=== PATIENT | male | born 1955 | race Caucasian/White ===

== ENCOUNTER 2018-01-02 14:09 | Inpatient (IN) | payer OTHER ==
[~2018-01-02 14:09] MED LIST: EPINEPHrine 1 MG/10 ML SYR IVP ONE
[2018-01-02] MEDS ORDERED: EPINEPHrine 1 MG/10 ML SYR IVP ONE ×6 (14:11→21:40)
[2018-01-02] MEDS ORDERED: SODIUM BICARBONATE 50 MEQ/50 ML SYR IVP ONE ×2 (14:11→14:15)
[2018-01-02] MEDS ORDERED: CALCIUM CHLORIDE 1 GM/10 ML INJ IV ONE ×2 (14:16→21:40)
[2018-01-02] MEDS ORDERED: LIDOCAINE 1% 300 MG/30 ML SDV ONE ×2 (14:26→14:29)
[2018-01-02] MEDS ORDERED: fentaNYL 100 MCG/2 ML INJ ONE (14:26)
[2018-01-02] MEDS ORDERED: MIDAZOLAM 2 MG/2 ML VIAL ONE (14:27)
[2018-01-02] MEDS ORDERED: DOPamine/DEXTROSE 400 MG/250 ML BAG IV ONE (14:27)
[2018-01-02] MEDS ORDERED: IOPAMIDOL (ISOVUE-370) 150 ML BTL IV ONE ×2 (14:27→15:07)
--- NOTE | 2018-01-02 14:27 | CPEKG ---
Heart Rate: 151 RR Interval: 397 QRSD Interval: 152 QT Interval: 336 QTC Interval: 533 QRS [place]: 110 T Wave [place]: -60 EKG Severity - ABNORMAL ECG - EKG Impression: ATRIAL FIBRILLATION EKG Impression: ABERRANT COMPLEX EKG Impression: RBBB AND LPFB EKG Impression: ST DEPRESSION, CONSIDER ISCHEMIA, DIFFUSE LDS Electronically Signed By: Eli Sellers 02-Jan-2018 20:48:41
[2018-01-02] MEDS ORDERED: HEPARIN 10,000 UNIT/10 ML MDV (1,000 UNIT/ML) ONE ×2 (14:30→14:54)
--- NOTE | 2018-01-02 14:35 | EDPHY ---
H & P Time Seen by Provider: 01/02/18 14:10 HPI/ROS: CHIEF COMPLAINT: Cardiac arrest cardiac arrest HISTORY OF PRESENT ILLNESS: The patient is a 67-year-old male who presents to the emergency department via EMS in cardiac arrest. Per report, the patient suddenly dropped down while [place] a trail. The initial arriving EMS found the patient in cardiac arrest. CPR was instituted. ACLS protocol was followed. HEMS was activated. Patient was intubated. No known recent history. Patient is currently on epinephrine and dopamine drip. The patient intermittently had pulses in route. REVIEW OF SYSTEMS: Unable to obtain due to the patient's condition Past Medical/Surgical History: Unknown Past surgical history: Unknown Physical Exam: GENERAL: Cardiac arrest. Unresponsive. HEENT: ET tube in place. Mild blood at the lips. Pupils fixed. NECK: Trachea midline. No subcutaneous air. RESPIRATORY: Decreased breath sounds bilaterally with bag valve mask. Mild blood at the ET tube. CVS: No palpable pulse. ABDOMEN: Soft, nontender, nondistended, no organomegaly. BACK: Patient not rolled during initial resuscitation due to condition. SKIN: Normal color, dry. Warm skin. EXTREMITIES: No pedal edema, no joint swelling. NEURO/PSYCH: Unresponsive. No spontaneous movement Constitutional: Initial Vital Signs Heart Rate 159 H 01/02/18 14:19 O2 Delivery Mode Ventilator O2 (L/minute) 10 Allergies/Adverse Reactions: No Allergy Information Available Allergy (Verified 01/02/18 15:22) Medical Decision Making Procedures: Bedside limited cardiac ultrasound #1 Indication: cardiac arrest No large pericardial fluid collection. No spontaneous cardiac activity. Bedside limited cardiac ultrasound #2 Indication: cardiac arrest No large pericardial fluid collection. Spontaneous cardiac activity. Procedure video laryngoscopy Indication: Cardiac arrest Using video laryngoscopy I confirmed that the ET tube was in place. ED Course/Re-evaluation: In the emergency department I met EMS on arrival. I took report from the flight director. I reviewed the patient's initial EKG. Shows a right bundle branch block. Dr. Jay Kong from Cardiology was also present. ACLS was followed. Additional epinephrine and bicarb were given. High quality continue CPR was performed. Initial quick bedside ultrasound did not show significant cardiac movement. I confirmed ET tube placement using video laryngoscopy. The tube was secured in place. I-STAT revealed normal potassium. ACLS was continued. I discussed differential diagnosis with Dr. Kong. We do not feel we should give systemic TNKASE at this time. Pt has had prolonged CPR. Pt will go to dental laboratory manager if ROSC. The on recheck patient had return of pulses. There was cardiac activity on bedside ultrasound. Both open mean an epinephrine drip for continued. Patient was given 0.5 amp Calcium Chloride. The patient was taken to the cardiac catheterization lab. Patient has not yet had a chest x-ray. I discussed this with Dr. Kong He will evaluate the patient's lungs in the cardiac catheterization lab. I discussed the case with the nurse. He will place an NG tube in the cardiac catheterization lab. Per the flight crew Patti Leija requested that she be called and updated. I called [phone] and left a voicemail with the hospital contact information. Differential Diagnosis: My differential includes but is not limited to ACS, acute CA, pulmonary embolus , dissection, aneurysm, pneumothorax, hemothorax, CVA, electrolyte abnormality, sugar abnormality, dehydration, subarachnoid hemorrhage, subdural hematoma, epidural hematoma Critical Care Time: Patient received 35 min of critical care time. This was exclusive of any unbundled procedure. This was due the patient's critical condition, time spent at the bedside, consultation with Dr. Kong from Cardiology - Data Points Laboratory Results: 01/02/18 14:16 POC Hgb 9.5 gm/dL L gm/dL (13.7-17.5) POC Hct 28 % L % (40-51) POC Sodium 174 mEq/L H* mEq/L (135-145) POC Potassium 3.7 mEq/L mEq/L (3.3-5.0) POC Chloride 96 mEq/L L mEq/L (97-110) POC BUN 15 mg/dL mg/dL (7-23) POC Creatinine 1.8 mg/dL H mg/dL (0.7-1.3) POC Glucose 318 mg/dL H mg/dL (70-100) Medications Given: Discontinued Medications Calcium Chloride (Calcium Chloride) 0.5 gm IV ONCE ONE Stop: 01/02/18 14:17 Last Admin: 01/02/18 14:16 Dose: 0.5 gm Epinephrine HCl (Epinephrine) 1 mg IVP ONCE ONE Stop: 01/02/18 14:09 Last Admin: 01/02/18 14:08 Dose: 1 mg Epinephrine HCl (Epinephrine) 1 mg IVP ONCE ONE Stop: 01/02/18 14:12 Last Admin: 01/02/18 14:11 Dose: 1 mg Epinephrine HCl (Epinephrine) 1 mg IVP ONCE ONE Stop: 01/02/18 14:15 Last Admin: 01/02/18 14:14 Dose: 1 mg Epinephrine HCl (Epinephrine) 1 mg IVP ONCE ONE Stop: 01/02/18 14:17 Last Admin: 01/02/18 14:16 Dose: 1 mg Sodium Bicarbonate (Sodium Bicarbonate) 50 meq IVP ONCE ONE Stop: 01/02/18 14:16 Last Admin: 01/02/18 14:15 Dose: 50 meq Sodium Bicarbonate (Sodium Bicarbonate) 50 meq IVP ONCE ONE Stop: 01/02/18 14:12 Last Admin: 01/02/18 14:11 Dose: 50 meq Point of Care Test Results: Chemistry 01/02/18 14:16 POC Sodium 174 mEq/L H* mEq/L (135-145) POC Potassium 3.7 mEq/L mEq/L (3.3-5.0) POC Chloride 96 mEq/L L mEq/L (97-110) POC BUN 15 mg/dL mg/dL (7-23) POC Creatinine 1.8 mg/dL H mg/dL (0.7-1.3) POC Glucose 318 mg/dL H mg/dL (70-100) ISTAT H&H 01/02/18 14:16 POC Hgb 9.5 gm/dL L gm/dL (13.7-17.5) POC Hct 28 % L % (40-51) Departure - Departure Disposition: [facility] Inpatient Acute Clinical Impression: Cardiac arrest Condition: Good
[2018-01-02] MEDS ORDERED: SODIUM BICARBONATE 50 MEQ/50 ML SYR ONE ×3 (15:00→16:26)
[2018-01-02] MEDS ORDERED: EPINEPHrine 1 MG in NS 250 ML IV SCH (15:00)
[2018-01-02] MEDS ORDERED: PHENYLEPHRINE HCL 50 MG in NS 250 ML IV SCH (15:00)
[2018-01-02] MEDS ORDERED: CALCIUM CHLORIDE 1 GM/10 ML INJ ONE ×2 (15:00→15:22)
[2018-01-02] MEDS ORDERED: NOREPINEPHRINE/NS 500 ML IV SCH (15:30)
[2018-01-02] MEDS ORDERED: DOBUTamine 500 MG in D5W 250 ML IV SCH (15:30)
[2018-01-02] MEDS ORDERED: ALTEPLASE 100 MG in NS 100 ML IV ONE (15:30)
[2018-01-02] MEDS ORDERED: NS 1,000 ML IV SCH (15:30)
--- NOTE | 2018-01-02 15:31 | PDCARCONS ---
Cardiology Consult Reason for Consult: Cardiac arrest Chief Complaint: Cardiac arrest Requesting Physician: Tino History of Present Illness: 62-year-old male no prior cardiovascular history was hiking today. He had a cardiac arrest. I am not sure at this point with a was witnessed or not. Patient had CP R. He was transported by helicopter with off and on CPR over the course of 1 hr. He arrives here without a pulse. CPR was continued. Initial ultrasound showed no cardiac motion. He was treated aggressively. With ACLS the patient returned a blood pressure and heart rate. Patient was taken the cardiac catheterization lab for further evaluation. There was a verbal report that at the time he was found he was mottled from the mid chest up. History Information - Allergies/Home Medication List Allergies/Adverse Reactions: No Allergy Information Available Allergy (Verified 01/02/18 15:22) Past Medical History: Physical Exam Physical Exam: Temp Pulse Resp BP Pulse Ox 159 H 01/02/18 15:01 O2 (L/minute) 10 Constitutional: other (Unresponsive, intubated, flail chest from CPR.) Eyes: other (Fixed and dilated.) Cardiovascular: irregularly irregular Peripheral Pulses: 2+: femoral (R), femoral (L) Respiratory: bronchial breath sounds, rhonchi, other (Intubated) Skin: warm Lab and Imaging POC Hgb 9.5 gm/dL (13.7-17.5) L 01/02/18 14:16 POC Hct 28 % (40-51) L 01/02/18 14:16 Puncture Site ARTERIAL LINE 01/02/18 14:40 Patient Temperature 37.0 DEGREES 01/02/18 14:40 pCO2 98 mmHg (34-38) H* 01/02/18 14:40 pO2 58 mmHg (65-75) L 01/02/18 14:40 Total CO2 18 mEq/L (23-27) L 01/02/18 14:40 ABG pH 6.82 (7.35-7.45) L* 01/02/18 14:40 ABG HCO3 15 mEq/L (22-26) L 01/02/18 14:40 ABG O2 Saturation 58 % (92-95) L 01/02/18 14:40 ABG Base Excess -21.3 mEq/L (-2.5-2.5) L 01/02/18 14:40 O2 Concentration % 100 % (0-100) 01/02/18 14:40 Set Respiration Rate 24 01/02/18 14:40 SIMV YES 01/02/18 14:40 Tidal Volume 500 01/02/18 14:40 PEEP 5 01/02/18 14:40 POC Sodium 174 mEq/L (135-145) H* 01/02/18 14:16 POC Potassium 3.7 mEq/L (3.3-5.0) 01/02/18 14:16 POC Chloride 96 mEq/L (97-110) L 01/02/18 14:16 POC BUN 15 mg/dL (7-23) 01/02/18 14:16 POC Creatinine 1.8 mg/dL (0.7-1.3) H 01/02/18 14:16 POC Glucose 318 mg/dL (70-100) H 01/02/18 14:16 A/P Assessment: Cardiac arrest uncertain etiology rhythm analysis suggest Jeremiah arrhythmia query pulmonary embolic disease. Plan: Patient taken the cardiac catheterization lab for continued support.
--- NOTE | 2018-01-02 15:35 | PDDXCAT ---
Diagnostic Cath Note - . Date: 01/02/18 Multiple Cut Off Saw Operator: Dilan Indication: other (Cardiac alert/cardiac arrest) - Procedure Access: right groin Procedure: left heart catheterization, coronary angiography, right heart catheterization, other (Transesophageal echo, pulmonary arteriogram, intra pulmonary thrombolysis) - Materials Left Heart Cath size: 6F Left Heart Cath materials: standard multipack (JL4, JR4, pigtail) - Findings-Left Heart Catheterization LM: Unobstructed LAD: Unobstructed LCX: Unobstructed RCA: Unobstructed - Findings-Right Heart Catheterization PA: Pulmonary arteriogram revealed significant thrombotic burden. There was no central clot identified. Films reviewed with Dr. Christine. Complications: None Estimated blood loss: <50ml Assessment: Pulmonary embolic cardiac arrest. Angiographically normal coronary arteries. No evidence of aortic dissection. Normal left ventricular systolic function. Reduced RV systolic function. Persistent shock. Plan: Hypothermia protocol. Lysis of thromboembolism selective in the right pulmonary artery. Aggressive support with inotropes, volume. Intervention: On arrival to the laborer syrup machine transesophageal echocardiogram was performed emergently. This revealed no evidence of dissection. The left ventricle was elina normally in fact was hypercontractile an under filled. The right ventricle is dilated with reduced RV systolic function. I could not of identify thrombus in the main pulmonary artery. Left heart catheterization was performed. There were angiographically normal coronary arteries. Right heart catheterization was then performed. Limited injection revealed thrombus right greater than left. Patient was injected with 13623 units of heparin intravenously. Consultation was obtained with Dr. Jordy Álvarez and Dr. Yasmine Christine was elected to proceed with intrapulmonary artery thrombolysis. Standard protocol was used. HACA catheter was then placed in the left femoral vein. Patient is taken to the ICU in critical care with guarded prognosis. Patient Problems: Problems Problem Status Onset Cardiac arrest Acute
[2018-01-02] MEDS ORDERED: NOREPINEPHRINE BITARTRATE 4 MG in NS 500 ML IV SCH (16:00)
[2018-01-02] MEDS ORDERED: ALBUMIN 5% 500 ML IV ONE ×2 (16:31→17:00)
[2018-01-02] MEDS ORDERED: ALBUMIN 5% 500 ML BOTTLE IV ONE (16:31)
--- NOTE | 2018-01-02 16:48 | ECHO ---
[email or web address] [address] [address] Main: [phone] Fax: Transesophageal Echocardiography Name: DAYANARA BENEDICT MR#: [id number] Study Date: 01/02/2018 Study Time: 02:27 PM Date of : 1955 Age: 62 year(s) Height: ( ) Weight: ( ) BSA: Gender: Male Examination: CHUN Indication: CPR, Stat team Image Quality: Contrast: Requested by: Jay Kong Heart Rate: Rhythm: BP: / Procedure Staff Cold Rolling Machine Setter: Adolfo Rose RDCS Reading Physician: Jay Kong MD Requesting Provider: CHUN Exam Details Conclusions: No pericardial effusion. No aortic dissection. Hyperdynamic left ventricle. Dilated right ventricle with reduced RV systolic function. Measurements: Chambers Valvular Assessment AV/MV Valvular Assessment TV/PV Normal Normal Normal Name Value Range Name Value Range Name Value Range Additional Measurements: Findings: Left Ventricle: Global hypercontractility of the left ventricle. There is moderate to severe left ventricular hypertrophy.. Right Ventricle: Severely reduced RV function. Right Atrium: The right atrium is severely dilated. Pericardium: No pericardial effusion. No echocardiographic evidence of hemodynamic compromise. Exam Comments: This is a emergent CHUN during a cardiac alert. There is no evidence of ascending AO disection. Patient: DAYANARA BENEDICT Study Date: 01/02/2018 Page 1 of 2 02:27 PM l1n (No Signature Object) Patient: DAYANARA BENEDICT Study Date: 01/02/2018 Page 2 of 2 02:27 PM [id number]
[2018-01-02 17:43] LABS: PLATELET COUNT 115 10^3/uL (150-400)
--- NOTE | 2018-01-02 18:14 | GCON ---
[f rep st] CONSULTATION PULMONARY CRITICAL CARE CONSULTATION DATE OF CONSULTATION: 01/02/2018 REASON FOR CONSULTATION: Hypotension, massive pulmonary embolism, arrest. HISTORY: The patient is a 62-year-old healthy gentleman who collapsed in [place] today. Bystande r CPR was initiated. He was transported by helicopter air ambulance to [facility]. He was taken immediately to the offset label rewinder. There was evidence of right heart failure and diffuse pulm onary embolic disease in segmental and distal segments, right greater than left. Prior to his arriva l, CPR with compressions, pressors, etc., was needed in the helicopter, in the emergency department, and intermittently in the offset label rewinder. He was brought to the intensive care unit in critical condition, hypotensive, hypoxic, on pressors. He was given fluids, both crystalloid and colloid. Pressors wer e maxed out. Oxygen saturations on 100% FiO2 on the ventilator at best were 80%, often in the 70s. Previous echo showed no pericardial effusion. Right ventricle was dilated with poor right ventricula r systolic function. No other etiologies were found. The aorta appeared normal. The patient was em pirically started on tPA, 100 mg given over 2 hours, in hopes that some clot lysis might occur. Bloo d pressure maximum in the intensive care unit bradley to 85 with aggressive fluid resuscitation and 4 pr essors including maxed out norepinephrine, epinephrine, etc. At approximately 5:15, he arrested agai n, with PEA on the monitor. He was bradycardic with a wide-complex rhythm and no pulse. Rate was ap proximately 30. CPR was again initiated, CPR with full compressions; epinephrine, atropine, bicarbon ate, and calcium were restarted and continued to 5:41. The patient's and friends were at the be dside throughout CPR. The patient was pronounced at 5:41 and further attempts at resuscitative efforts were stopped. Approximately 90 minutes of critical care time was spent directly with the patient, including convers ations with the patient's and family, multiple evaluations, and a running the cor zero. /[id number]/MODL
[2018-01-02 18:27] LABS: PROTIME(PATIENT) > 120.0 SEC (12.0-15.0)
[2018-01-02 18:28] LABS: INR > 16.20 (0.83-1.16)
[2018-01-02 19:08] VITALS: BP 30/4
[2018-01-02] MEDS ORDERED: ATROPINE SULFATE 1 MG/10 ML SYR IVP ONE (21:40)
[2018-01-02] MEDS ORDERED: SODIUM BICARBONATE 50 MEQ/50 ML SYR IV ONE (21:40)
--- NOTE | 2018-01-03 15:17 | PDMN ---
Medical Necessity Medical necessity: Pt meets IP criteria per MD; est los >2 mn for eval/tx of cardiac arrest of uncertain etiology; query PE; admit to ICU for close monitoring/further followup & Cardiology consult
--- NOTE | 2018-02-20 13:11 | GDS ---
[f rep st] DISCHARGE SUMMARY DISCHARGE DIAGNOSIS: Massive pulmonary embolism with multi-organ failure. HISTORY: Details can be found in my Pulmonary Critical Care consultation. Briefly, the patient collapsed in [place] and was transferred by helicopter to [facility] and in full arrest. He was found to have massive pulmonary embolism. He was resuscitated an d given lytic therapy. However, he did not respond, remained hypotensive, and after CPR was called at 5:41 p.m. The patient was pronounced . /[id number]/MODL
== END 2018-01-02 21:41 | disposition expired | DRG 176 ==
LOC: F2N 14:24
PROVIDERS: ADMIT Internal Medicine Interventional Cardiology; ATTEND Internal Medicine Interventional Cardiology
PROC: 4A023N8 Measurement of Cardiac Sampling and Pressure, Bilateral, Percutaneous Approach (ICD-10-PCS; principal; 2018-01-02)
PROC: B2161ZZ Fluoroscopy of Right and Left Heart using Low Osmolar Contrast (ICD-10-PCS; principal; 2018-01-02)
PROC: B2111ZZ Fluoroscopy of Multiple Coronary Arteries using Low Osmolar Contrast (ICD-10-PCS; principal; 2018-01-02)
DX: I26.99 Other pulmonary embolism without acute cor pulmonale (principal); I46.9 Cardiac arrest, cause unspecified
CPT/HCPCS: 82435-PO; 82565-PO; 82947-PO; 84132-PO; 84295-PO; 84520-PO; 85014-PO; 96374; J0171; J0461; J1250; J1265; J1644; J2250; J2370; J2997; J3010; P9041; Q9967